=== PATIENT | female | born 1965 | race Caucasian/White ===

== ENCOUNTER → 2018-07-30 13:53 | Outpatient (CLI) | payer MEDICAID, SELFPAY ==
--- NOTE | 2018-07-30 13:59 | MR_ITS ---
MR thoracic spine wo con HISTORY: PT states Mid back pain, left side under scapula. Symptoms X 6 Months or longer. No known injury. ITS.REASON: THORACIC SPINE PAIN, ABNORMAL X-RAY OF THORACIC SPINE ORDERING PHYSICIAN: Glenis Pulido PATIENT AGE: 53 years Comparison: None TECHNIQUE: Standard multiplanar multiecho sequences are performed without contrast. 3-D MIP and myelographic images are also rendered and reviewed FINDINGS: There is normal alignment. No acute fracture, dislocation, lytic, or blastic lesion evident. No bony destruction. Mild disc desiccation with slight decrease in the disc space noted at T2-T6 and T7-T8 and T8-T9. Degenerative disc disease is somewhat more progressed at T10-T11 and T11-T12. Minimal bulging disc C3-C4 on the left and at T11-T12. No disc herniation. No intra or extra-axial mass There is minimal ectasia of the lower thoracic aorta at the T8-T9 area and 2.6 cm. 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 No acute fracture or disc herniation. No canal stenosis. 2. Mild multilevel thoracic spondylosis with mild degenerative disc disease and minimal bulging discs
== END ==
PROVIDERS: PCP Physician Assistant; Visit Provider Physician Assistant
DX: M54.6 Pain in thoracic spine (principal); R93.7 Abnormal findings on diagnostic imaging of other parts of musculoskeletal system
CPT/HCPCS: 72146